=== PATIENT | female | born 1960 | race Caucasian/White ===

== ENCOUNTER → 2018-01-18 14:42 | Outpatient (CLI) | payer SELFPAY ==
--- NOTE | 2018-01-18 14:59 | VDLE_ITS ---
Reason For Study: thrombophlebitis RIGHT LEFT GSV is normal. CFV is compressible, spontaneous, phasic, CFV is compressible, spontaneous, phasic, competent, and demonstrates normal competent and demonstrates normal augmentation. augmentation. FV is compressible, spontaneous, phasic, competent and demonstrates normal augmentation. POP V is compressible, spontaneous, phasic, competent and demonstrates normal augmentation. T/P Trunk is compressible. PTV is compressible. RT PerV is compressible. Gastroc V are dilated and noncompressible. SSV is dilated and noncompressible. Varicose veins below the knee are dilated and noncompressible. Procedure Exam performed in department. The exam was diagnostic. A preliminary report was called and/or faxed to Dr. Carpenter. Pt sent to [facility] to be admitted per Dr. Carpenter. Interpretation Summary Acute deep vein thrombosis is noted in the right gastrocnemius vein. The remainder of the right lower extremity deep venous system is patent and compressible. Valvular competence appears intact within the proximal deep venous system on the right . The right greater saphenous vein appears patent and compressible segmentally. Acute superficial thrombophebitis is noted in the right small saphenous vein, as well as in superficial varicosities below the right knee. Ordering Physician: Yvan Clifton Performed By: Nigel Montoya RVNadya
== END ==
PROVIDERS: Family Provider Family Medicine; PCP Family Medicine; Visit Provider Family Medicine
DX: I82.4Z1 Acute embolism and thrombosis of unspecified deep veins of right distal lower extremity (principal)
CPT/HCPCS: 93971

== ENCOUNTER → 2018-02-23 14:54 | Outpatient (CLI) | payer SELFPAY ==
--- NOTE | 2018-02-23 15:03 | VDLE_ITS ---
Reason For Study: RLE pain - DVT/SVT 01/22 RIGHT GSV is normal. CFV is compressible, spontaneous, phasic, competent and demonstrates normal augmentation. FV is compressible, spontaneous, phasic, competent and demonstrates normal augmentation. POP V is compressible, spontaneous, phasic, competent and demonstrates normal augmentation. T/P Trunk is compressible. PTV is compressible. RT PerV is compressible. Gastroc v is now compressible SSV is partially compressible with bright intraluminal echoes. Thrombus filled varicose veins lt medial calf. Procedure Exam performed in department. A preliminary report was called and/or faxed to Dr. Flores. Interpretation Summary Deep veins of the right lower extremity are patent and compressible segmentally. There is no evidence of right lower extremity deep vein thrombosis. Valvular competence appears intact within the proximal deep venous system on the right . The right greater saphenous vein appears patent and compressible segmentally. Acute/chronic superficial thrombophlebitis is noted in the right small saphenous vein. Acute superficial thrombophlebitis is noted involving superficial varicosities in the right medial calf. There has been improvement since a prior study on 01/18/2018, with resolution of the acute deep vein thrombosis in the right gastrocnemius vein. The superficial thrombophlebitis in the right small saphenous vein appears to be transitioning to a more chronic appearance. Ordering Physician: GIAOCMO FLORES Referring Physician: Giacomo Flores Performed By: Maru Quiñonez RVT
== END ==
PROVIDERS: Family Provider Family Medicine; PCP Family Medicine; Visit Provider Family Medicine
DX: M79.604 Pain in right leg (principal)
CPT/HCPCS: 93971

== ENCOUNTER → 2019-03-26 09:44 | Outpatient (CLI) | payer SELFPAY ==
--- NOTE | 2019-03-26 09:51 | VDLE_ITS ---
Reason For Study: pain, swelling, varicose veins, hx DVT RIGHT LEFT CFV is compressible, spontaneous, phasic, CFV is compressible, spontaneous, phasic, competent and demonstrates normal competent, and demonstrates normal augmentation. augmentation. FV is compressible, spontaneous, phasic, FV is compressible, spontaneous, phasic, competent and demonstrates normal competent and demonstrates normal augmentation. augmentation. POP V is compressible, spontaneous, phasic, POP V is compressible, spontaneous, phasic, competent and demonstrates normal competent and demonstrates normal augmentation. augmentation. T/P Trunk is compressible. T/P Trunk is compressible. PTV is compressible. PTV is compressible. RT PerV is compressible. LT PerV is compressible. SFJ is competent and measures .82 cm. SFJ is competent and measures .69 cm. GSV INCOMPETENT throughout for greater than GSV INCOMPETENT throughout for greater than 0.5 seconds. 0.5 seconds. GSV proximal thigh measures .39 x .41 cm. GSV proximal thigh measures .37 x .35 cm. GSV at knee measures .7 x .68 cm. GSV at knee measures .29 x .29 cm. SSV proximal calf is INCOMPETENT for greater SSV proximal calf is INCOMPETENT for greater than 0.5 seconds and measures .29 x .29 cm. than 0.5 seconds and measures .32 x .3 cm. ASV below the knee is incompetent for greater than .5 seconds. ASV measures .19 x .21 cm. Procedure Exam performed in department. Patient was scanned in reverse Trendelenburg position during reflux assessment. The exam was diagnostic. Interpretation Summary 1. Bilateral no DVT. 2. Right GSV 4.1 and 7mm and LSV 3mm with reflux. 3. Left GSV 3.7 and 3mm and LSV 3.2mm with reflux. Ordering Physician: Grady Perrin Performed By: Nigel Montoya, RVT
== END ==
PROVIDERS: Referring Provider Surgery Vascular Surgery; Visit Provider Surgery Vascular Surgery
DX: M79.609 Pain in unspecified limb (principal); M79.89 Other specified soft tissue disorders; I83.893 Varicose veins of bilateral lower extremities with other complications; Z86.718 Personal history of other venous thrombosis and embolism
CPT/HCPCS: 93970

== ENCOUNTER → 2020-08-14 08:50 | Outpatient (CLI) | payer SELFPAY ==
--- NOTE | 2020-08-14 08:58 | VDLE_ITS ---
Reason For Study: Leg pain RIGHT CFV is compressible, spontaneous, phasic, competent and demonstrates normal augmentation. FV is compressible, spontaneous, phasic, competent and demonstrates normal augmentation. POP V is compressible, spontaneous, phasic, competent and demonstrates normal augmentation. T/P Trunk is compressible. PTV is compressible. RT PerV is compressible. GSV above knee and SSV previous EVLA. GSV in prox calf measures 0.21 x 0.20 cm and is competent. Thrombus filled varicose vein noted in the right mid to distal thigh. SFJ is competent and measures 0.96 x 0.92 cm. GSV below knee is competent. ASV distal thigh is INCOMPETENT for greater than 0.5 seconds and measures 0.44 x 0.44 cm. Procedure This is a venous duplex using B-mode, color flow and spectral Doppler. Exam performed in department. A preliminary report was called and/or faxed to Prelim to [place]. Called multiple times and kept getting cut off from line. Released patient home will continue to call. Interpretation Summary No DVT noted right leg. GSV and varicose veins appear occluded. Reflux noted in distal thigh 4.4mm ASV. Ordering Physician: Grady Perrin Referring Physician: Corinne Lewis Performed By: Naomie Mojica RVT
== END ==
PROVIDERS: Referring Provider Surgery Vascular Surgery; Visit Provider Surgery Vascular Surgery
DX: I83.893 Varicose veins of bilateral lower extremities with other complications (principal); M79.606 Pain in leg, unspecified; M79.89 Other specified soft tissue disorders; Z86.718 Personal history of other venous thrombosis and embolism
CPT/HCPCS: 93971

== ENCOUNTER → 2021-07-07 09:56 | Outpatient (CLI) | payer SELFPAY ==
--- NOTE | 2021-07-07 10:02 | VDLE_ITS ---
Reason For Study: Venous Insufficiency RIGHT LEFT CFV is compressible, spontaneous, phasic, CFV is compressible, spontaneous, phasic, competent and demonstrates normal competent, and demonstrates normal augmentation. augmentation. FV is compressible, spontaneous, phasic, FV is compressible, spontaneous, phasic, competent and demonstrates normal competent and demonstrates normal augmentation. augmentation. POP V is compressible, spontaneous, phasic, POP V is compressible, spontaneous, phasic, competent and demonstrates normal competent and demonstrates normal augmentation. augmentation. T/P Trunk is compressible. T/P Trunk is compressible. PTV is compressible. PTV is compressible. RT PerV is compressible. LT PerV is compressible. GSV above knee and SSV previous EVLA. SFJ is competent and measures 0.84 x 0.91 cm. GSV below knee is competent and measures 0.21 GSV proximal thigh measures 0.46 x 0.42 cm. x 0.23 cm. GSV above knee is competent. 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 medial malleolus. GSV below knee is INCOMPETENT for greater SFJ is competent and measures 0.80 x 0.94 cm. than 0.5 seconds. ASV distal thigh is INCOMPETENT for greater ASV mid calf is INCOMPETENT for greater than than 0.5 seconds and measures 0.40 x 0.41 cm. 0.5 seconds and measures 0.33 x 0.32 cm. ASV proximal calf is INCOMPETENT for greater SSV proximal calf is INCOMPETENT for greater than 0.5 seconds and measures 0.40 x 0.40 cm. than 0.5 seconds and measures 0.19 x 0.20 cm. Procedure This is a venous duplex using B-mode, color flow and spectral Doppler. Exam performed in department. VL/Venous Duplex US - Eric Extrem Interpretation Summary Bilateral no DVT. Right GSV and LSV previous ablation. Right ASV measuring 4 mm in the distal thigh incompetent into multiple varicosities. Left leg with reflux noted in the calf GSV, ASV, LSV and into branches. Ordering Physician: Grady Perrin Referring Physician: Corinne Lewis Performed By: Naomie Mojica RVT
== END ==
PROVIDERS: Referring Provider Surgery Vascular Surgery; Visit Provider Surgery Vascular Surgery
DX: I83.893 Varicose veins of bilateral lower extremities with other complications (principal); M79.609 Pain in unspecified limb; M79.89 Other specified soft tissue disorders; Z86.718 Personal history of other venous thrombosis and embolism
CPT/HCPCS: 93970